=== PATIENT | male | born 2000 | race Caucasian/White ===

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

== ENCOUNTER 2021-09-09 18:37 | Emergency (ER) | payer OTHER ==
[2021-09-09 19:12] VITALS: BP 132/80; PULSE 99; TEMP 98.2; BMI 22.2
[2021-09-09 22:42] LABS: HIV INTERPRETATION NEGATIVE (NEGATIVE)
== END 2021-09-09 20:49 | disposition home or self-care (01) ==
LOC: JER 18:37 → JERFT 18:37
DX: J02.9 Acute pharyngitis, unspecified (principal)
CPT/HCPCS: 36415; 86308; 87389; 87804; 99283-25; C9803; U0003; U0005

== ENCOUNTER 2022-02-07 12:15 | Emergency (ER) | payer OTHER ==
[2022-02-07 12:28] VITALS: BP 123/79; PULSE 94; TEMP 97.8; BMI 22.9
[2022-02-07] MEDS ORDERED: DEXAMETHASONE SOD PHOSPHATE 10 MG/1 ML VIAL ONE (13:11)
[2022-02-07] MEDS ORDERED: DEXAMETHASONE SOD PHOSPHATE 10 MG/1 ML VIAL PO ONE (13:12)
[2022-02-07] MEDS: DEXAMETHASONE SOD PHOSPHATE 10 MG/1 ML VIAL IVPUSH ONE ×2 (13:15→13:16)
== END 2022-02-07 13:23 | disposition home or self-care (01) ==
LOC: JERFT 12:15
DX: S30.812A Abrasion of penis, initial encounter (principal); J02.9 Acute pharyngitis, unspecified; W29.8XXA Contact with other powered hand tools and household machinery, initial encounter; Z20.2 Contact with and (suspected) exposure to infections with a predominantly sexual mode of transmission
CPT/HCPCS: 36415; 87086; 87491; 87591; 99284-25; J1100

== ENCOUNTER 2022-02-24 16:41 | Emergency (ER) | payer OTHER ==
[2022-02-24 17:08] VITALS: BP 110/69; PULSE 80; TEMP 97.9; BMI 25.8
[2022-02-24] MEDS ORDERED: ONDANSETRON *ODT* 4 MG TABLET SL ONE (17:43)
[2022-02-24] MEDS ORDERED: ONDANSETRON *ODT* 4 MG TABLET ONE (17:52)
== END 2022-02-24 19:33 | disposition home or self-care (01) ==
LOC: JER 16:41
DX: S09.90XA Unspecified injury of head, initial encounter (principal)
CPT/HCPCS: 70450-TC; 70486-TC; 99285-25; Q0162

== ENCOUNTER 2022-06-08 21:32 | Emergency (ER) | payer OTHER ==
[2022-06-08 21:57] VITALS: BP 128/68; PULSE 98; RESP 18; TEMP 97.8; BMI 22.2
[2022-06-08 22:50] LABS: BASO % 0.5 % (0-2.0); EOS % 0.4 % (0-4.5); HEMATOCRIT 42.2 % (35.4-49); HEMOGLOBIN 14.2 GM/dL (11.7-16.9); MCH 30.6 pg (25.7-33.7); MCHC 33.6 g/dl (32.0-35.9); MEAN CELL VOLUME 91.1 fl (80-96); MEAN PLT VOLUME 8.3 fl (7.5-11.1); MONO % 9.2 % (3.8-10.2); NEUT % 65.9 % (42.8-82.8); PLATELET COUNT 217 10^3/uL (134-434); RBC 4.64 M/mm3 (4.00-5.60); RDW 12.9 % (11.9-15.9); WHITE BLOOD COUNT 8.5 K/mm3 (4.0-10.0)
[2022-06-08 23:07] LABS: ALBUMIN 4.1 g/dl (3.4-5.0); BLOOD UREA NITROGEN 9.6 mg/dL (7-18); CALCIUM 9.6 mg/dL (8.5-10.1)
[2022-06-08 23:09] LABS: CREATININE 0.8 mg/dL (0.55-1.3)
[2022-06-08 23:12] LABS: BILIRUBIN,TOTAL 0.2 mg/dL (0.2-1); TOT PROT 7.4 g/dl (6.4-8.2)
[2022-06-09 00:02] LABS: HIV INTERPRETATION NEGATIVE (NEGATIVE)
== END 2022-06-09 01:52 | disposition home or self-care (01) ==
LOC: JER 21:32
DX: Z20.2 Contact with and (suspected) exposure to infections with a predominantly sexual mode of transmission (principal)
CPT/HCPCS: 36415; 76705-TC; 80053; 83690; 85025; 86694; 86695; 86696; 87389; 87491; 87591; 87661; 99284-25